=== PATIENT | male | born 1985 ===

== ENCOUNTER → 2017-05-14 | Outpatient (REF) | payer OTHER ==
[2017-05-14 09:32] LABS: #IMMOTILE SPERM COUNTED 9; #MOTILE SPERM COUNTED 9; % MOTILITY 50 (> 40%); TOTAL # SPERM COUNTED 18 M/ml
== END ==
LOC: M LAB REF 09:14
PROVIDERS: ATTEND Obstetrics & Gynecology
DX: N46.8 Other male infertility (principal)

== ENCOUNTER → 2020-03-26 | Outpatient (CLI) | payer OTHER | LOC: M LABSMTC 12:48 | PROVIDERS: ATTEND Family Medicine | DX: Z20.828 Contact with and (suspected) exposure to other viral communicable diseases (principal) ==